=== PATIENT | female | born 1950 | race Caucasian/White ===

== ENCOUNTER 2016-08-15 16:35 | Emergency (ER) | payer MEDICARE ==
[2016-08-15 18:31] LABS: BASOPHILS 0.2 % (0.0-2.0); EOSINOPHILS 4.5 % (0.0-6.0); EOSINOPHILS# 0.5 X 10^3uL (0.0-0.4); HEMOGLOBIN 13.4 g/dL (12.0-16.0); LYMPHOCYTES# 2.6 X 10^3uL (0.8-3.8); MEAN CELL VOLUME 89.5 fL (80.0-100.0); MEAN CORPUS. HGB CONCENTRATION 33.5 g/dL (32.0-36.0); MEAN CORPUSCULAR HEMOGLOBIN 29.9 pg (29.0-35.0); MEAN PLATELET VOLUME 9.4 fL (7.4-10.4); MONOCYTES 8.6 % (2.0-10.0); MONOCYTES# 0.9 X 10^3uL (0.2-1.0); NEUTROPHILS 62.7 % (54.0-75.0); NEUTROPHILS# 6.8 X 10^3uL (2.6-6.7); PLATELET COUNT 185 X 10^3uL (130-440); RED BLOOD COUNT 4.47 X 10^6uL (4.20-6.10); RED CELL DISTRIBUTION WIDTH 13.7 % (11.5-14.5); WHITE BLOOD COUNT 10.8 X 10^3uL (3.9-10.7)
[2016-08-15 18:45] LABS: BLOOD UREA NITROGEN 29 mg/dL (7-17); CALCIUM 10.9 mg/dL (8.4-10.2); CHLORIDE 104 mmol/L (98-107); EST GLOMERULAR FILTRATION RATE 32 mL/min; GLUCOSE 111 mg/dL (70-100); MAGNESIUM 2.5 mg/dL (1.6-2.3); POTASSIUM 3.5 mmol/L (3.5-5.1); SODIUM 140 mmol/L (137-145)
[2016-08-15 19:09] LABS: TROPONIN I < 0.012 ng/mL (0.00-0.034)
--- NOTE | 2016-08-15 20:51 | CT REPORT ---
HISTORY: Syncope COMPARISON: None. TECHNIQUE: Axial imaging was obtained through the brain. This examination was performed using automated exposure control, adjustment of mA or kV according to patient size, and/or use of iterative reconstruction technique. FINDINGS: The ventricles and sulci are normal in size and configuration for the patient's age. No evidence of abnormal intra- or extraaxial fluid collection/bleed or mass lesion identified. Remote lacunar infarct or prominent perivascular space in the left lentiform nucleus. Bilateral basal ganglia mineralization compatible with senescent change. No evidence of acute stroke. The paranasal sinuses and orbits appear within normal limits. IMPRESSION: No evidence of acute intracranial injury. Final Electronic Signature: This report was electronically signed by Gen Craig MD on 08/15/2016 8: 49 PM. len /
--- NOTE | 2016-08-15 21:02 | ER NURSING DOCUMENTATION ---
Nurse's Notes [facility] Name:Virginia Santacruz Age:66 yrs Sex:Female :1950 Arrival Date:08/15/2016 Time:16:35 BedTrauma-C Private MD: Diagnosis:Syncope Presentation: 08/15 16:42 Acuity: LEON 2 lp 16:46 Presenting complaint: states: Pt was sitting in the car, said she was sleepy rh and passed out for about 8-10 minutes. states that the patients lips turned blue and she was responding to them. Pt does not remember the event, nor did she hit her head. Pt had an episode like this in the past 20 years ago due to low BP. Transition of care: Home. 16:46 Method Of Arrival: Private Vehicle Triage Assessment: 16:47 General: Appears in no apparent distress, Behavior is cooperative. Pain: Denies pain. rh EENT: Oral mucosa is dry. Reports Roaring in her ears . Neuro: Level of Consciousness is awake, alert, obeys commands. Cardiovascular: Capillary refill < 3 seconds Chest pain is denied. Respiratory: Airway is patent Respiratory effort is even, unlabored, Denies shortness of breath. GI: Abdomen is non- distended Denies nausea. : Reports incontinence Pt had an incontinent episode during the syncopal episode. Derm: Skin is intact, is healthy with good turgor, Skin is pink, warm & dry. Musculoskeletal: Circulation, motion, and sensation intact Range of motion intact in all extremities. Historical: - Allergies: No known drug Allergies; - Home Meds: 1. Atenolol Oral - PMHx: Hypertension; GOUT; - PSHx: None; - Tetanus: unknown. - Ebola Screening: : Patient negative for fever greater than or equal to 101.5 degrees Fahrenheit, and additional compatible Ebola Virus Disease symptoms. - Immunization history: Flu Vaccine None. - Social history: Smoking status: Patient states was never smoker of tobacco. Screenin:50 Infectious Disease Risk None. Abuse screen: Denies threats or abuse. Denies injuries rh from another. Nutritional screening: No deficits noted. Assessment: 16:50 See Triage Assessment done by same RN. 20:34 Neuro: Reports a syncopal episode. Cardiovascular: Rhythm is regular. bw2 Vital Signs: 16:49 BP 172 / 64; Pulse 65; Resp 18; Temp 97.9(O); Pulse Ox 96% on R/A; Weight 81.65 kg; rh Height 5 ft. 4 in. (162.56 cm); Pain 0/10; 18:26 BP 172 / 64; Pulse 72; Resp 20; Pulse Ox 94% ; ew 20:17 BP 185 / 62 (auto/); bw2 20:25 BP 164 / 52 (auto/); bw2 21:01 BP 164 / 55; Pulse 70; Resp 18; Pulse Ox 97% ; bw2 16:49 Body Mass Index 30.90 (81.65 kg, 162.56 cm) rh ED Course: 16:36 EKG done. Reviewed by Zhou Boyd MD. rh 16:37 Patient arrived in ED. dp 16:40 ambulance driver paramedic on. Pulse ox on. NIBP on. rh 16:42 Triage completed. lp 16:45 Inserted saline lock: 18 gauge in right antecubital area and blood collected. nf 16:46 Iza Pacheco is Primary Nurse. rh 16:47 Zhou Boyd MD is Attending Physician. tl1 16:50 Notified ED Physician of patient's arrival and chief complaint. Dr. Boyd notified. rh 16:50 Valuables Remains with patient Patient has correct armband on for positive rh identification. Placed in gown. Bed in low position. Call light in reach. Side rails up X2. 16:51 EKG attached rh 19:[address] mr 19:[address] Patient moved [address]. mr Administered Medications: No medications were administered Point of Care Testing: Blood Glucose: 16:51 Blood Glucose: 85 mg/dL; rh Ranges: Outcome: 20:54 Discharge ordered by . tl1 21:01 Discharged to home ambulatory, with family. bw2 21:01 Condition: good 21:01 Report given to 21:01 Discharge Assessment: Patient awake, alert and oriented x 3. No cognitive and/or functional deficits noted. Patient verbalized understanding of disposition instructions. 21:01 Discharge instructions given to patient, Instructed on discharge instructions, follow up and referral plans. Demonstrated understanding of instructions. 21:01 Patient left the ED. 2 08/16 11:43 Discharge F/U Call: Unable to reach: no answer Signatures: Brunilda Gordon RN RN Susan Rivero RN RN Zhou Bower MD MD 1 Tara, Iza Ash, Niurka Goldstein, Jackie bw2 Kike Leija Denise dp
--- NOTE | 2016-08-15 21:02 | ER PHYSICIAN DOCUMENTATION ---
Physician Documentation [facility] Name:Virginia Santacruz Age:66 yrs Sex:Female :1950 Arrival Date:08/15/2016 Time:16:35 BedTrauma-C Private MD: Zhou Martinez Disposition: 08/17 06:46 Chart complete. tl1 Disposition: 08/15/16 20:54 Discharged to Home/Self Care. Impression: Syncope. - Condition is Good. - Discharge Instructions: SYNCOPE, Unk Cause, SYNCOPE, Vasovagal. - Medical Reconciliation form form. - Follow up: Private Physician; When: 7 - 10 days; Reason: Recheck today's complaints, Continuance of care. - Problem is new. - Symptoms have improved. HPI: 08/15 16:47 This 66 yrs old Female presents to ER via Private Vehicle with complaints of tl1 Syncope. 16:50 She has a history of multiple episodes of syncope and of car sickness. Her last episode tl1 of syncope several years ago resulted in an ED visit during which nothing serious was apparently found. Today, while riding in the back seat of a car with her and friends, she complained of feeling ill. She had a syncopal episode with apparent LOC. It was 2-3 minutes before her was able to stop the car. He found her to be responsive but groggy, She had been incontinent of urine, but did not bite her tongue. There was no shaking observed. She slowly returned to a normal status. She denied h/a, chest pain, fever, GI bleeding. She denied prior head CT or h/o CAD or CHF.. Historical: - Allergies: No known drug Allergies; - Home Meds: 1. Atenolol Oral - PMHx: Hypertension; GOUT; - PSHx: None; - Tetanus: unknown. - Ebola Screening: : Patient negative for fever greater than or equal to 101.5 degrees Fahrenheit, and additional compatible Ebola Virus Disease symptoms. - Immunization history: Flu Vaccine None. - Social history: Smoking status: Patient states was never smoker of tobacco. ROS: 16:50 Cardiovascular: Negative for chest pain, edema, palpitations. tl1 16:50 Respiratory: Negative for cough, hemoptysis, pleurisy, shortness of breath. 16:50 Abdomen/GI: Positive for nausea, Negative for abdominal pain, vomiting, diarrhea, hematemesis, rectal bleeding. 16:50 Neuro: Negative for headache, seizure activity, visual changes, weakness. Exam: 16:50 Constitutional: This is a well developed, well nourished patient who is awake, alert, tl1 and in no acute distress. Head/Face: Normocephalic, atraumatic. 16:50 Eyes: Pupils equal round and reactive to light, extra-ocular motions intact. Lids and tl1 lashes normal. Conjunctiva and sclera are non-icteric and not injected. Cornea within normal limits. Periorbital areas with no swelling, redness, or edema. 16:50 ENT: Mouth: is normal, Oral mucosa: pink and intact, moist, Posterior pharynx: is normal, no acute changes. 16:50 Neck: External neck: ROM/movement: is normal, is supple, Lymph nodes: no appreciated lymphadenopathy. 16:50 Cardiovascular: Rate: normal, Rhythm: regular, Heart sounds: normal, no murmur, no rub, no gallop, Edema: is not appreciated. 16:50 Respiratory: Respirations: normal, Breath sounds: are normal. 16:50 Abdomen/GI: Palpation: abdomen is soft and non-tender. 16:50 Musculoskeletal/extremity: Exam is negative for acute changes. 16:50 Skin: Exam negative for acute changes. 16:50 Neuro: Orientation: is normal, Mentation: is normal, Memory: is normal, Cranial nerves: grossly normal, Motor: moves all fours, strength is 5/5 in the right hand, left hand, right foot and left foot. Vital Signs: 16:49 BP 172 / 64; Pulse 65; Resp 18; Temp 97.9(O); Pulse Ox 96% on R/A; Weight 81.65 kg; rh Height 5 ft. 4 in. (162.56 cm); Pain 0/10; 18:26 BP 172 / 64; Pulse 72; Resp 20; Pulse Ox 94% ; ew 20:17 BP 185 / 62 (auto/); bw2 20:25 BP 164 / 52 (auto/); bw2 21:01 BP 164 / 55; Pulse 70; Resp 18; Pulse Ox 97% ; bw2 16:49 Body Mass Index 30.90 (81.65 kg, 162.56 cm) rh MDM: 16:47 Patient medically screened. tl1 16:47 ECG:. tl1 16:50 Data reviewed: vital signs, nurses notes, lab test result(s), EKG, radiologic studies, tl1 CT scan, plain films, and as a result, I will discharge patient. Test interpretation: by ED physician or midlevel provider: plain radiologic studies, ECG. Counseling: I had a detailed discussion with the patient and/or guardian regarding: the historical points, exam findings, and any diagnostic results supporting the discharge/admit diagnosis, lab results, radiology results, the need for outpatient follow up, with the patient's primary care provider, to return to the emergency department if symptoms worsen or persist or if there are any questions or concerns that arise at home. Special discussion: The cause for this episode is most likely vagal, vs atonic seizure. Vagal, just because it is statistically much more likely, because she has a h/o car sickness, and was apparently having that just prior to this event. I am concerned however about possible seizure because of her reported incontinence and what sounds like a possible post-ictal period. Her head CT is unremarkable, and I don't think starting anti-seizure medication would be appropriate at this time. I stressed that because of this murkiness surrounding her final diagnosis, she needs close f/u with her PCP, and potentially neurology and cardiology consults.. 16:51 EKG attached 08/15 18:54 Order name: CBC AUTO DIF, MDIF/RMOR IF IND; Complete Time: 17:04 [facility] 08/17 17:02 Interpretation: WHITE BLOOD COUNT 10.8; HEMOGLOBIN 13.4; HEMATOCRIT 40.0; PLATELET tl1 COUNT 185. 08/15 19:10 Order name: BASIC METABOLIC PANEL; Complete Time: 17:04 [facility] 08/17 17:03 Interpretation: SODIUM 140; POTASSIUM 3.5; CHLORIDE 104; CARBON DIOXIDE 25; GLUCOSE tl1 111; BLOOD UREA NITROGEN 29; CREATININE 1.7; CALCIUM 10.9. 08/15 19:10 Order name: MAGNESIUM; Complete Time: 17:04 [facility]WA 08/17 17:03 Interpretation: Abnormal: MAGNESIUM 2.5. tl 08/15 19:10 Order name: TROPONIN I; Complete Time: 17:04 [facility] 08/17 17:03 Interpretation: Normal: TROPONIN I < 0.012. tl1 08/15 20:53 Order name: CAT SCAN; HEAD W/O CON [id number]; Complete Time: 17:04 [facility]MS 08/17 17:03 Interpretation: NAD. SEE NOTE. tl1 08/15 16:52 Order name: EKG - 12 Lead; Complete Time: 16:52 08/15 16:52 Order name: Iv Saline Lock; Complete Time: 16:52 EC:36 Rate is 67 beats/min. Rhythm is regular. QRS [place] is Normal. NH interval is normal at tl1 161 msec. QRS interval is normal at 8 msec. QT interval is normal at 410 msec. No Q waves. T waves are Normal. No ST changes noted. Clinical impression: Normal ECG. Interpreted by me. Reviewed by me. Dispensed Medications: No medications were administered Point of Care Testing: Blood Glucose: 16:51 Blood Glucose: 85 mg/dL; rh Ranges: Critical Glucose Levels:Adult <50 mg/dl or >400 mg/dl <40 mg/dl or >180 mg/dl Signatures: Zhou Boyd MD MD tl1 Iza Pacheco Jackie Goldstein 2
== END 2016-08-15 21:02 | disposition home or self-care (01) ==
LOC: ER 16:35
DX: R55 Syncope and collapse (principal); R11.0 Nausea; I10 Essential (primary) hypertension; Z79.899 Other long term (current) drug therapy
CPT/HCPCS: 70450; 80048; 83735; 84484; 85025; 93005; 99285